=== PATIENT | female | born 1970 | race Caucasian/White ===

== ENCOUNTER → 2018-07-09 | Outpatient (CLI) | payer OTHER ==
[~2018-07-09] MED LIST: IOPAMIDOL (ISOVUE-300) 100 ML BTL ONE
== END ==
LOC: FIMAGING 14:48
PROVIDERS: ATTEND Family Medicine
DX: K38.8 Other specified diseases of appendix (principal); N83.291 Other ovarian cyst, right side; K59.00 Constipation, unspecified; Z97.5 Presence of (intrauterine) contraceptive device
CPT/HCPCS: Q9967

== ENCOUNTER → 2018-07-23 | Outpatient (CLI) | payer OTHER | LOC: FIMAGING 10:38 | PROVIDERS: ATTEND Surgery | DX: K82.8 Other specified diseases of gallbladder (principal); R10.9 Unspecified abdominal pain | CPT/HCPCS: 78227; A9537 ==

== ENCOUNTER 2018-07-25 06:26 | Day surgery (SDC) | payer OTHER ==
[2018-07-25] MEDS ORDERED: LR 1,000 ML IV ONE (06:37)
[2018-07-25 07:07] LABS: PLATELET COUNT 241 10^3/uL (150-400)
--- NOTE | 2018-07-25 07:32 | PDHPUP ---
History & Physical Update H&P update statement: This history and physical update is based on an assessment of the patient which was completed after admission or registration (within 24 hours), but prior to the surgery/procedure. H&P update: H&P reviewed & patient examined, no change in patient's condition since H&P completed
[2018-07-25] MEDS ORDERED: MIDAZOLAM 2 MG/2 ML VIAL IVP ONE (08:14)
--- NOTE | 2018-07-25 08:14 | PDANEPAE ---
ANE History of Present Illness Tumor resection tomorrow, cscope today as prep ANE Past Medical History - Cardiovascular History Hx Hypertension: No Hx Arrhythmias: No Hx Chest Pain: No Hx Coronary Artery / Peripheral Vascular Disease: No Hx CHF / Valvular Disease: No Hx Palpitations: No - Pulmonary History Hx COPD: No Hx Asthma/Reactive Airway Disease: Yes Hx Recent Upper Respiratory Infection: No Hx Oxygen in Use at Home: No Hx Sleep Apnea: No Sleep Apnea Screening Result - Last Documented: Negative Pulmonary History Comment: uses breo- instructed pt to bring to hospital - Neurologic History Hx Cerebrovascular Accident: Yes Hx Seizures: No Hx Dementia: No Neurologic History Comment: mild stroke 2009- no residual effects - Endocrine History Hx Diabetes: No - Renal History Hx Renal Disorders: No - Liver History Hx Hepatic Disorders: No - Neurological & Psychiatric Hx Hx Neurological and Psychiatric Disorders: Yes Neurological / Psychiatric History Comment: depression - Cancer History Hx Cancer: Yes Cancer History Comment: cervical ca x2, last time was 2002 rafael - Congenital Disorder History Hx Congenital Disorders: No - GI History Hx Gastrointestinal Disorders: Yes Gastrointestinal History Comment: 07/25/18 colonoscopy with Mcclure. abd mass currently. constipation. bloating - Other Health History Other Health History: eczema - Chronic Pain History Chronic Pain: No - Surgical History Prior Surgeries: 07/25/18 colonoscopy with Mc[facility]. hand surgeries- bilaterally. LEEP procedure. cervical surgery ANE Review of Systems Review of Systems: - Exercise capacity METS (RN): 3 METS ANE Patient History - Allergies Allergies/Adverse Reactions: codeine Allergy (Verified 07/24/18 11:47) very young and they almost had to pump her stomach - Home Medications Home Medications: Breo Ellipta 100-25 Mcg INH 07/24/18 [Last Taken 07/25/18 05:30] buPROPion 07/24/18 [Last Taken 07/24/18] - NPO status NPO Since - Liquids (Date): 07/25/18 NPO Since - Liquids (Time): 05:00 NPO Since - Solids (Date): 07/24/18 NPO Since - Solids (Time): 15:00 - Smoking Hx Smoking Status: Former smoker - Family Anes Hx Family Hx Anesthesia Complications: none ANE Labs/Vital Signs - Labs Result Diagrams: 07/25/18 06:55 - Vital Signs Blood Pressure: 112/85 Heart Rate: 82 Respiratory Rate: 18 O2 Sat (%): 95 Height: 157.48 cm Weight: 74.843 kg ANE Physical Exam - Airway Neck exam: FROM Mallampati Score: Class 2 Mouth exam: normal dental/mouth exam - Pulmonary Pulmonary: no respiratory distress - Cardiovascular Cardiovascular: regular rate and rhythym - ASA Status ASA Status: III ANE Anesthesia Plan Anesthesia Plan: GA with mask Total IV Anesthesia: Yes
[2018-07-25] MEDS ORDERED: fentaNYL 100 MCG/2 ML INJ ONE (08:15)
[2018-07-25] MEDS ORDERED: LIDOCAINE 2% 5 ML SDV ONE (08:15)
[2018-07-25] MEDS ORDERED: PROPOFOL/EMULSION 500 MG/50 ML BOTTLE IV ONE (08:16)
[2018-07-25] MEDS ORDERED: MIDAZOLAM 2 MG/2 ML VIAL ONE (08:16)
[2018-07-25] MEDS ORDERED: LR 500 ML IV PRN (08:44)
[2018-07-25] MEDS ORDERED: ONDANSETRON 4 MG/2 ML VIAL IVP PRN (08:44)
[2018-07-25] MEDS ORDERED: MEPERIDINE 25 MG/0.5 ML AMP IVP PRN (08:44)
[2018-07-25] MEDS ORDERED: fentaNYL 100 MCG/2 ML INJ IVP PRN (08:44)
[2018-07-25] MEDS ORDERED: HYDROCODONE/APAP 5/325 TAB PO PRN (08:44)
[2018-07-25] MEDS ORDERED: NALOXONE HCL 0.4 MG/ML INJ IVP PRN (08:44)
--- NOTE | 2018-07-25 09:07 | POSTANESTH ---
Post Anesthetic Evaluation Cardiovascular Status: Normal, Stable Respiratory Status: Normal, Stable Level of Consciousness/Mental Status: Can Participate in Eval Pain Control: Adequate, Prn Tx Ordered Nausea/Vomiting Control: Adequate, Prn Tx Ordered Complications Possibly Related to Anesthesia: None Noted
[2018-07-25 10:28] VITALS: BP 120/82
--- NOTE | 2018-08-01 09:26 | CPEKG ---
Test Reason : rafat-op Blood Pressure : / mmHG Vent. Rate : 070 BPM Atrial Rate : 070 BPM P-R Int : 159 ms QRS Dur : 080 ms QT Int : 382 ms P-R-T Axes : 016 005 -16 degrees QTc Int : 413 ms Sinus rhythm Low voltage, precordial leads Probable anteroseptal infarct, old Confirmed by Demetris Hidalgo ([id number]) on 08/01/2018 9:25:46 AM Referred By: Confirmed By:Demetris Hidalgo
== END 2018-07-25 10:25 | disposition home or self-care (01) ==
LOC: FSGY 06:26
PROVIDERS: ATTEND Surgery
PROC: 0DBJ8ZX Excision of Appendix, Via Natural or Artificial Opening Endoscopic, Diagnostic (ICD-10-PCS; principal; 2018-07-25 08:15)
PROC: 0DBM8ZX Excision of Descending Colon, Via Natural or Artificial Opening Endoscopic, Diagnostic (ICD-10-PCS; principal; 2018-07-25 08:15)
DX: D12.4 Benign neoplasm of descending colon (principal); D12.5 Benign neoplasm of sigmoid colon; R19.09 Other intra-abdominal and pelvic swelling, mass and lump
CPT/HCPCS: J2250; J2704; J3010

== ENCOUNTER 2018-07-26 10:04 | Observation (INO) | payer OTHER ==
[2018-07-26] MEDS ORDERED: cefOXitin SODIUM 2 GM in NS 100 ML IV ONE (11:59)
[2018-07-26] MEDS ORDERED: LIDOCAINE 1% 2 ML INJ ID PRN (13:02)
[2018-07-26] MEDS ORDERED: LR 1,000 ML IV ONE (13:02)
[2018-07-26] MEDS ORDERED: ONDANSETRON 4 MG/2 ML VIAL ONE (13:18)
[2018-07-26] MEDS ORDERED: ONDANSETRON 4 MG/2 ML VIAL IVP ONE (13:32)
[2018-07-26] MEDS ORDERED: MIDAZOLAM 2 MG/2 ML VIAL IVP ONE (13:32)
--- NOTE | 2018-07-26 13:32 | PDANEPAE ---
ANE Past Medical History - Cardiovascular History Hx Hypertension: No Hx Arrhythmias: No Hx Chest Pain: No Hx Coronary Artery / Peripheral Vascular Disease: No Hx CHF / Valvular Disease: No Hx Palpitations: No - Pulmonary History Hx COPD: No Hx Asthma/Reactive Airway Disease: Yes Hx Recent Upper Respiratory Infection: No Hx Oxygen in Use at Home: No Hx Sleep Apnea: No Sleep Apnea Screening Result - Last Documented: Negative Pulmonary History Comment: uses breo- instructed pt to bring to hospital - Neurologic History Hx Cerebrovascular Accident: Yes Hx Seizures: No Hx Dementia: No Neurologic History Comment: mild stroke 2009- no residual effects - Endocrine History Hx Diabetes: No - Renal History Hx Renal Disorders: No - Liver History Hx Hepatic Disorders: No - Neurological & Psychiatric Hx Hx Neurological and Psychiatric Disorders: Yes Neurological / Psychiatric History Comment: depression - Cancer History Hx Cancer: Yes Cancer History Comment: cervical ca x2, last time was 2002 rafael - Congenital Disorder History Hx Congenital Disorders: No - GI History Hx Gastrointestinal Disorders: Yes Gastrointestinal History Comment: 07/25/18 colonoscopy with Mc[facility]ure. abd mass currently. constipation. bloating - Other Health History Other Health History: eczema - Chronic Pain History Chronic Pain: No - Surgical History Prior Surgeries: 07/25/18 colonoscopy with Mc[facility]. hand surgeries- bilaterally. LEEP procedure. cervical surgery ANE Review of Systems Review of Systems: - Exercise capacity METS (RN): 3 METS ANE Patient History - Allergies Allergies/Adverse Reactions: codeine Allergy (Verified 07/24/18 11:47) very young and they almost had to pump her stomach - Home Medications Home Medications: Breo Ellipta 100-25 Mcg INH 07/24/18 [Last Taken 07/25/18 05:30] buPROPion 07/24/18 [Last Taken 07/25/18] Ondansetron Odt 07/26/18 [Last Taken 07/26/18 12:50] - NPO status NPO Since - Liquids (Date): 07/26/18 NPO Since - Liquids (Time): 10:00 NPO Since - Solids (Date): 07/25/18 NPO Since - Solids (Time): 20:00 - Smoking Hx Smoking Status: Former smoker - Family Anes Hx Family Hx Anesthesia Complications: none ANE Labs/Vital Signs - Vital Signs Blood Pressure: 127/91 Heart Rate: 76 Respiratory Rate: 12 O2 Sat (%): 97 Height: 157.48 cm Weight: 74.843 kg ANE Physical Exam - Airway Neck exam: FROM Mallampati Score: Class 2 Mouth exam: normal dental/mouth exam - Pulmonary Pulmonary: no respiratory distress - Cardiovascular Cardiovascular: regular rate and rhythym - ASA Status ASA Status: II ANE Anesthesia Plan Anesthesia Plan: general endotracheal anesthesia
[2018-07-26] MEDS ORDERED: fentaNYL 100 MCG/2 ML INJ ONE (13:51)
[2018-07-26] MEDS ORDERED: fentaNYL 100 MCG/2 ML INJ IVP ONE ×2 (14:00)
[2018-07-26] MEDS ORDERED: PROPOFOL/EMULSION 500 MG/50 ML BOTTLE IV ONE ×2 (14:08→15:04)
[2018-07-26] MEDS ORDERED: RANITIDINE 50 MG/2 ML VIAL ONE (14:09)
[2018-07-26] MEDS ORDERED: DEXAMETHASONE 4 MG/ML VIAL ONE ×2 (14:09)
[2018-07-26] MEDS ORDERED: KETOROLAC 30 MG/1 ML SDV ONE (14:09)
[2018-07-26] MEDS ORDERED: ROCURONIUM 100 MG/10 ML VIAL ONE (14:09)
[2018-07-26] MEDS ORDERED: METOCLOPRAMIDE 10 MG/2 ML VIAL ONE (14:09)
[2018-07-26] MEDS ORDERED: LIDOCAINE 2% 100 MG/5 ML SYR ONE (14:09)
[2018-07-26] MEDS ORDERED: BUPIVACAINE/EPI 0.5% 30 ML SDV ONE (14:20)
[2018-07-26] MEDS ORDERED: GLYCOPYRROLATE 0.2 MG/1 ML VIAL ONE ×2 (15:16)
[2018-07-26] MEDS ORDERED: fentaNYL 100 MCG/2 ML INJ IVP PRN (15:17)
[2018-07-26] MEDS ORDERED: ALBUTEROL 3 ML DEYVIAL IH PRN (15:17)
[2018-07-26] MEDS ORDERED: NALOXONE HCL 0.4 MG/ML INJ IVP PRN (15:17)
[2018-07-26] MEDS ORDERED: PROMETHAZINE HCL 25 MG/ML INJ IVP PRN (15:17)
[2018-07-26] MEDS ORDERED: NEOSTIGMINE METHYLSULFATE 5 MG/5 ML SYR ONE (15:17)
[2018-07-26] MEDS ORDERED: ONDANSETRON 4 MG/2 ML VIAL IVP PRN (15:17)
--- NOTE | 2018-07-26 15:42 | POSTANESTH ---
Post Anesthetic Evaluation Cardiovascular Status: Similar to Pre-Op Cond Respiratory Status: Similar to Pre-op Cond. Level of Consciousness/Mental Status: Mildly Sleepy, Arousable Pain Control: Adequate, Prn Tx Ordered Nausea/Vomiting Control: Adequate, Prn Tx Ordered Complications Possibly Related to Anesthesia: None Noted
[2018-07-26] MEDS ORDERED: HYDROmorphONE/DILAUDID 1 MG/ML INJ IVP PRN (16:19)
[2018-07-26] MEDS ORDERED: ACETAMINOPHEN 325 MG TAB PO PRN (16:19)
[2018-07-26] MEDS ORDERED: HYDROCODONE/APAP 5/325 TAB PO PRN (16:19)
--- NOTE | 2018-07-26 16:22 | POSTOPPROG ---
Post Op Note Date of Operation: 07/26/18 Surgeon: Adonay Mcclure Anesthesiologist: Alfonzo Mccullough Anesthesia: GET(General Endotracheal) Pre-op Diagnosis: Appendiceal neoplasm Post-op Diagnosis: Same Procedure: Lap Appy with partial cecectomy Inf/Abcess present in the surg proc area at time of surgery?: No EBL: Minimal Complications: no immediate Specimen(s): appendix
[2018-07-26] MEDS ORDERED: LR 1,000 ML IV SCH (16:30)
[2018-07-26] MEDS: ONDANSETRON 4 MG/2 ML VIAL IVP PRN ×2 (17:21→22:37)
[2018-07-26] MEDS: KETOROLAC 15 MG/1 ML SDV IVP SCH ×2 (17:21→23:22)
[2018-07-27] MEDS: OXYCODONE/APAP 5/325 TAB PO PRN ×2 (04:53→09:01)
[2018-07-27] MEDS: KETOROLAC 15 MG/1 ML SDV IVP SCH (05:32)
--- NOTE | 2018-07-27 05:54 | GOP ---
DATE OF OPERATION: 07/26/2018 SURGEON: Adonay Mcclure MD ONLINE CONTENT EDITOR: Lebron Motley. ANESTHESIA: General. ANESTHESIOLOGIST: Dr. Mccullough. PREOPERATIVE DIAGNOSIS: Appendiceal neoplasm. POSTOPERATIVE DIAGNOSIS: Appendiceal neoplasm. PROCEDURE PERFORMED: Laparoscopic appendectomy with partial cecectomy. FINDINGS: See below. INDICATION FOR SURGERY: 47-year-old female with a history of progressive abdominal pain. 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 She is noted to have cystic ovaries, which have been assessed by gynecological service and felt to be simple in nature. No evidence of obvious peritoneal carcinomatosis was present upon imaging. She is undergoing a diagnostic laparoscopy with resection as indicated. Risks and benefits were explained to the patient including, but not limited to bleeding, infection, open conversion, appendiceal rupture, differential diagnoses, and various modes for resection pending operative findings. All questions were entertained. She desires to proceed. DESCRIPTION OF PROCEDURE: General anesthesia was induced. The abdomen was pre injected with 0.5% Marcaine with epinephrine. A vertical infraumbilical cutdown was created. A 10 mm trocar was placed under direct visualization. The 5 mm hypogastric and 5 mm left lower quadrant ports were inserted. Abdominal exploration revealed a simple appearing left ovarian cyst. The uterus appeared normal. The right ovary appeared normal without cystic abnormalities. No pelvic ascites or nodularity was present. The visualized portions of the abdominal visceral surfaces all appeared normal. The liver and gallbladder appeared normal with omental adhesions present only. The appendix was easily identified sitting within the right pericolic gutter. It was dilated as suspected upon CT imaging. No extramural mucin or implants were present. The visualized portions of the small and large intestine all appeared normal as were visualized portions of the omentum. The appendix was elevated out of the retroperitoneum. The peritoneum was kept intact overlying the appendix, as was the entire mesoappendiceal fat. This was dissected toward the base of the cecum. The cecum was taken partially off the white line of Toldt, allowing for the cecum and appendix to be elevated up the operative field. Preoperative colonoscopy was performed yesterday showing protrusion of the mass at the base, but no other cecal abnormalities. A partial cecectomy was able to be safely performed, allowing for multiple centimeters of normal cecum beyond the base of the appendix. This was done at the base of the ileocecal valve with multiple firings of the NIGEL 60 stapler. The specimen was placed into a large EndoCatch pouch. The umbilical incision was extended and the specimen brought intact ex vivo. No tumor rupture or inadvertent visceral spreading had taken place. Abdominal exploration revealed a hemostatic staple line with pink viable cecum. The trocars were removed under direct visualization. The infraumbilical midline fascia was closed with a running Vicryl suture. The wounds were closed with Monocryl suture followed by Dermabond. The patient was taken to the recovery room, extubated uneventfully. /[id number]/MODL MTDD
[2018-07-27 08:37] VITALS: BP 110/71
--- NOTE | 2018-07-27 09:54 | SOAPPROG ---
SOAP Progress Note Assessment/Plan: Assessment:no overnight events. pain controlled. c/o SKINNER mostly. avss. comfortable. abd soft. incis clean. RUQ tenderness markedly improved. s/p lap appy/cecectomy. doing well. home today. Plan: 07/27/18 09:53 Objective: Vital Signs Temp Pulse Resp BP Pulse Ox 36.7 C 83 16 110/71 97 07/27/18 08:35 07/27/18 08:35 07/27/18 08:35 07/27/18 08:35 07/27/18 08:35 07/26/18 07/27/18 07/28/18 05:59 05:59 05:59 Intake Total 1515 Output Total 760 Balance 755 ICD10 Worksheet Patient Problems: Problems Problem Status Onset Appendiceal tumor Acute
--- NOTE | 2018-07-27 12:34 | ASDISCHSUM ---
Discharge Information Plan Status:Home with No Needs Medically Cleared to Leave:07/26/2018 Discharge Date:07/26/2018 CM D/C Disposition:Home, Routine, Self-Care ADT D/C Disposition:Home, Routine, Self-Care Projected Discharge Date:07/26/2018 Transportation at D/C:Family Discharge Delay Reason: Follow-Up Date:07/26/2018 Discharge Slot: Final Diagnosis:constipation, appendiceal mass Placement Information Patient Contact Information Contact Name:ANTONIETTA Relationship: Address:[address] [facility] Work Phone: City:[place] Alternate Phone: [facility]/Zip Code:[place] [address] Email: Financial Information Financial Class:HMO and PPO Plans Primary Plan Desc:Presentigo DYLAN Primary Plan Number:[id number] Secondary Plan Desc:ANTON Secondary Plan Number:[id number] Assessment Information LACE LACE Length of stay for Answers: Less than 1 day current admission Acuity / Level of Answers: No Care: Did the patient have an inpatient admission? Comorbidities - select Answers: Any tumor (including all that apply lymphoma or leukemia) Cerebrovascular disease (CVA, TIA, aneurysms, vasc ular dementia) Other Notes: Asthma # of Emergency department Answers: 0 visits in the last 6 months Score: 4 Date Signed: 07/27/2018 10:17 AM Electronically Signed By:Sophie Dos Santos Case Management Discharge Plan Note Case Management Discharge Discharge Order Complete? Answers: Yes Patient to Obtain Answers: via Family Medications Transportation Arranged Answers: Family/Friends Transport will Pick (Date 07/27/2018 12:00 AM & Time) Family Notified Answers: Yes Notes: in the room Discharge Comments Notes: Spoke with pt in the room. Family also present and able to help care for pt upon discharge. Pt independent with ADLs. No CM need noted at this time. Intervention Information
== END 2018-07-27 11:12 | disposition home or self-care (01) ==
LOC: INTOOBSV 11:56 → F3E 11:56
PROVIDERS: ADMIT Surgery; ATTEND Surgery
PROC: 0DBH4ZZ Excision of Cecum, Percutaneous Endoscopic Approach (ICD-10-PCS; principal; 2018-07-26 13:30)
PROC: 0DTJ4ZZ Resection of Appendix, Percutaneous Endoscopic Approach (ICD-10-PCS; principal; 2018-07-26 13:30)
DX: D37.3 Neoplasm of uncertain behavior of appendix (principal)
CPT/HCPCS: 44970; G0378; J0694; J1100; J1170; J1885; J2001; J2250; J2405; J2704; J2710; J2765; J2780; J3010

== ENCOUNTER 2018-10-22 05:57 | Observation (INO) | payer OTHER ==
--- NOTE | 2018-10-21 16:14 | PDGENHP ---
History and Physical - Chief Complaint Stress Urinary Incontinence - History of Present Illness Aicha is a 48 yo pre-menopausal female who I have been working with on mixed urinary incontinence, with a strong predominance for stress incontinence. She does not have significant pelvic organ prolapse. She has tried and failed pelvic PT and also tried and failed anticholinergics with oxybutynin ER patch. Her urgency has improved with lifestyle modifications and avoidance of bladder irritants, but her stress leaking remains a major issue. She is interested in surgical intervention with incontinence sling. 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 Path showed low grade mucinous neoplasm. 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 Her children do not know about her meth use and she'd like it to stay that way. Portion of cecum and vermiform appendix: -- Low grade appendiceal mucinous neoplasm -- Maximal tumor dimension about 4 cm. -- Confined to appendix -- Margins clear -- Acute inflammation, mild History Information - Allergies/Home Medication List Allergies/Adverse Reactions: codeine Allergy (Verified 10/10/18 12:54) very young and they almost had to pump her stomach Home Medications: Breo Ellipta 100-25 Mcg INH DAILY 07/24/18 [Last Taken 07/25/18 08:00] Bupropion HCl [Wellbutrin Xl] #0 07/24/18 [Last Taken 07/25/18 08:00] Albuterol [Proventil Inhaler HFA (*)] Q4 PRN 07/26/18 [Last Taken Unknown] Herbals/Supplements -Info Only 07/26/18 [Last Taken Unknown] I have personally reviewed and updated: family history, medical history, social history, surgical history Past Medical History: Asthma, Cervical dysplasia, Mucinous neoplasm of the cervix, methamphetamine abuse - Surgical History Additional surgical history: LEEP 2007, R cheek cyst 2017, Cryo cervical 1980s, LS appendectomy and partial cecectomy 2017 - Family History Positive for: vascular disease, CAD, hypertension - Social History Smoking Status: Former smoker Drug Use: Other (Methamphetamine for years - quit 2 years ago - Pt DOES NOT want her children to know) Review of Systems Review of Systems: ROS: 10pt was reviewed & negative except for what was stated in HPI & below Physical Exam Physical Exam: Constitutional: no apparent distress, appears nourished, not in pain Eyes: PERRL, anicteric sclera, EOMI Ears, Nose, Mouth, Throat: moist mucous membranes, hearing normal Skin: warm, normal color, no rashes or abrasions Musculoskeletal: full muscle strength Psychiatric: interacting appropriately, not anxious Assessment & Plan Assessment: Preop: TVT mid-urethral incontinence sling, Cystoscopy - Urine Culture on admission prior to antibiotics (clean catch) - Ancef 2g prior to incision. - Pyridium 200mg PO x 1, one hour prior to procedure in PREOP. - Routine preop orders. - Will like transfer to [facility] for observation with plan to dc home same day (afternoon/evening) vs overnight observation. GERALD
[2018-10-22] MEDS ORDERED: ceFAZolin 2 GM/DEXTROSE 100 ML IV ONE (06:15)
[2018-10-22] MEDS ORDERED: PHENAZOPYRIDINE HCL 200 MG TAB PO ONE (06:15)
[2018-10-22] MEDS ORDERED: BUPIVACAINE/EPI 0.5% 30 ML SDV ONE (06:18)
[2018-10-22] MEDS ORDERED: VASOPRESSIN 20 UNIT/ML VIAL ONE (06:19)
[2018-10-22] MEDS ORDERED: LR 1,000 ML IV ONE (06:25)
[2018-10-22] MEDS ORDERED: MIDAZOLAM 2 MG/2 ML VIAL IVP ONE (07:08)
[2018-10-22] MEDS ORDERED: fentaNYL 100 MCG/2 ML INJ ONE (07:09)
[2018-10-22] MEDS ORDERED: PROPOFOL 200 MG/20 ML VIAL ONE (07:12)
[2018-10-22] MEDS ORDERED: KETOROLAC 30 MG/1 ML SDV ONE (07:14)
[2018-10-22] MEDS ORDERED: ONDANSETRON 4 MG/2 ML VIAL ONE (07:14)
[2018-10-22] MEDS ORDERED: DEXAMETHASONE 4 MG/ML VIAL ONE (07:14)
[2018-10-22] MEDS ORDERED: LIDOCAINE 2% 100 MG/5 ML SYR ONE (07:14)
[2018-10-22] MEDS ORDERED: SCOPOLAMINE HYDROBROMIDE 1 MG/3 DAYS PATCH TD SCH (07:15)
[2018-10-22] MEDS ORDERED: PROPOFOL/EMULSION 500 MG/50 ML BOTTLE IV ONE (07:27)
[2018-10-22] MEDS ORDERED: HYDROCODONE/APAP 5/325 TAB PO PRN (07:45)
[2018-10-22] MEDS ORDERED: NALOXONE HCL 0.4 MG/ML INJ IVP PRN (07:45)
[2018-10-22] MEDS ORDERED: METOCLOPRAMIDE 10 MG/2 ML VIAL IVP PRN (07:45)
[2018-10-22] MEDS ORDERED: ONDANSETRON 4 MG/2 ML VIAL IVP PRN ×2 (07:45→09:07)
[2018-10-22] MEDS ORDERED: DIAZEPAM 5 MG/ML 1 ML SYR IVP PRN (07:45)
[2018-10-22] MEDS ORDERED: ALBUTEROL 3 ML DEYVIAL IH PRN (07:45)
[2018-10-22] MEDS ORDERED: ACETAMINOPHEN 500 MG TAB PO PRN (07:45)
[2018-10-22] MEDS ORDERED: PROMETHAZINE HCL 25 MG/ML INJ IVP PRN (07:45)
[2018-10-22] MEDS ORDERED: HYDROmorphONE/DILAUDID 2 MG/ML INJ IVP PRN (07:45)
[2018-10-22] MEDS ORDERED: LR 500 ML IV PRN (07:45)
[2018-10-22] MEDS ORDERED: oxyCODONE IR 5 MG TAB PO PRN ×2 (07:45→09:07)
[2018-10-22] MEDS ORDERED: fentaNYL 100 MCG/2 ML INJ IVP PRN (07:45)
--- NOTE | 2018-10-22 07:47 | PDANEPAE ---
ANE History of Present Illness urinary incontinence for TVT ANE Past Medical History - Cardiovascular History Hx Hypertension: No Hx Arrhythmias: No Hx Chest Pain: No Hx Coronary Artery / Peripheral Vascular Disease: No Hx CHF / Valvular Disease: No Hx Palpitations: No - Pulmonary History Hx COPD: No Hx Asthma/Reactive Airway Disease: Yes Hx Recent Upper Respiratory Infection: No Hx Oxygen in Use at Home: No Hx Sleep Apnea: No Sleep Apnea Screening Result - Last Documented: Negative Pulmonary History Comment: uses breo- instructed pt to bring to hospital - Neurologic History Hx Cerebrovascular Accident: Yes Hx Seizures: No Hx Dementia: No Neurologic History Comment: mild stroke 2009- no residual effects - Endocrine History Hx Diabetes: No - Renal History Hx Renal Disorders: No - Liver History Hx Hepatic Disorders: No - Neurological & Psychiatric Hx Hx Neurological and Psychiatric Disorders: Yes Neurological / Psychiatric History Comment: depression - Cancer History Hx Cancer: Yes Cancer History Comment: cervical ca x2, last time was 2002 rafael - Congenital Disorder History Hx Congenital Disorders: No - GI History Hx Gastrointestinal Disorders: Yes Gastrointestinal History Comment: 07/25/18 colonoscopy with Mc[facility]ure. abd mass currently. constipation. bloating - Other Health History Other Health History: eczema - Chronic Pain History Chronic Pain: No - Surgical History Prior Surgeries: 07/26/18 laprascopy, appy, cecetomy with Mcclure. 07/25/18 colonoscopy with Mcclure. hand surgeries- bilaterally. LEEP procedure. cervical surgery ANE Review of Systems Review of systems is: negative Review of Systems: - Exercise capacity METS (RN): 3 METS ANE Patient History - Allergies Allergies/Adverse Reactions: codeine Allergy (Verified 10/10/18 12:54) very young and they almost had to pump her stomach - Home Medications Home medications: home medication list seen and reviewed Home Medications: Breo Ellipta 100-25 Mcg INH DAILY 07/24/18 [Last Taken 07/25/18 08:00] Bupropion HCl [Wellbutrin Xl] #0 07/24/18 [Last Taken 07/25/18 08:00] Albuterol [Proventil Inhaler HFA (*)] Q4 PRN 07/26/18 [Last Taken Unknown] Herbals/Supplements -Info Only 07/26/18 [Last Taken Unknown] - NPO status NPO Since - Liquids (Date): 10/21/18 NPO Since - Liquids (Time): 22:00 NPO Since - Solids (Date): 10/21/18 NPO Since - Solids (Time): 20:00 - Anes Hx Anes Hx: post operative nausea - Smoking Hx Smoking Status: Former smoker - Family Anes Hx Family Hx Anesthesia Complications: none ANE Labs/Vital Signs - Vital Signs Blood Pressure: 109/81 Heart Rate: 69 Respiratory Rate: 18 O2 Sat (%): 94 Height: 157.48 cm Weight: 70.307 kg ANE Physical Exam - Airway Neck exam: FROM Mallampati Score: Class 2 Mouth exam: normal dental/mouth exam - Pulmonary Pulmonary: no respiratory distress - Cardiovascular Cardiovascular: regular rate and rhythym - ASA Status ASA Status: II ANE Anesthesia Plan Anesthesia Plan: GA w LMA Urgent/Emergent Case: Luisa gibson completed preop but documented later for safe timely pt care
--- NOTE | 2018-10-22 07:47 | POSTANESTH ---
Post Anesthetic Evaluation Cardiovascular Status: Normal, Stable Respiratory Status: Normal, Stable Level of Consciousness/Mental Status: Can Participate in Eval, Alert and Oriented Pain Control: Adequate, Prn Tx Ordered Nausea/Vomiting Control: Adequate, Prn Tx Ordered Complications Possibly Related to Anesthesia: None Noted
--- NOTE | 2018-10-22 08:31 | POSTOPPROG ---
Post Op Note Date of Operation: 10/22/18 Surgeon: Aron Jean-Baptiste Lead Inspector: None Anesthesiologist: Kristian Rankin Anesthesia: GET(General Endotracheal) Pre-op Diagnosis: Stress urinary incontinence Post-op Diagnosis: Same Procedure: TVT mid-urethral incontinence sling Findings: NEFG, nl vaginal anatomy, no cystocele, nl urethra and bladder on cysto Inf/Abcess present in the surg proc area at time of surgery?: No EBL: 10cc Complications: None Bowel Protocol: No Specimen(s): None
--- NOTE | 2018-10-22 08:36 | SUROPNOTE ---
[facility] Operative Report - Surgery Date of Operation: 10/22/18 Surgeon: Aron Jean-Baptiste Turntable Man: None Anesthesiologist: Kristian Rankin Anesthesia: GET(General Endotracheal) Pre-op Diagnosis: 1. Stress urinary incontinence 2. Mixed urinary incontinence Post-op Diagnosis: 1. Same Procedure: 1. TVT mid-urethral incontinence sling 2. Cystoscopy Findings: 1. NEFG, normal vaginal anatomy, minimal cystocele/uterine prolapse. 2. Cystoscopically normal urethra and bladder, no foreign material or other injuries to the bladder following placement of sling. Strong ureteral jet's from bilateral UO's. Inf/Abcess present in the surg proc area at time of surgery?: No EBL: 10cc Complications: None Bowel Protocol: No Specimen(s): None Technique: After informed consent was reviewed with the patient, she was taken to the operating room, where time-out was performed confirming correct patient and planned procedures. Sequential compression devices were applied to the patients lower extremities. General anesthesia was induced without issue. The patient was placed in low lithotomy position with her legs in sheyla stirrups. Care was taken to cushion all potential pressure areas and position the patient an an ergonomically-neutral position. An examination under anesthesia was performed with the findings noted above. She was prepped and draped in the usual sterile fashion. Antibiotics were given prior to skin incision. The bladder was drained with the cystoscope sheath. Puncture sites were marked on the patients abdomen approximately 2cm lateral of the midline bilaterally just cephalad to the symphysis. Tracts were hydrodissected from above using injectable saline and the skin was punctured with a 11 blade scalpel. Following this attention was turned to the vagina where an area approximately 1.5cm proximal to the external urethral meatus was identified on the anterior vaginal wall and infiltrated with local anesthetic with epi and dilute vasopressin. The mucosa was grasped with helene clamps and the skin opened with a scalpel. Mili scissors were used to develop tracts back towards the pubic bone bilaterally. At this point the [employer] [place] Fit TVT sling was prepared the trocars delivered behind the pubic bone up and through our planned skin incisions on both sides without apparent complication. At this point we looked with cystoscopy and confirmed that there were no trocar injuries to the urethra or bladder. I did note that I could see the LEFT arm of the sling that appeared quite close to the lateral bladder wall on that side, but definitely not punctured/injured. I did elect to replace that side and move further lateral. This arm was backed out and replaced with the trocar. Cysto performed again confirmed that arm to not close to bladder wall. We also visualized strong ureteral jets from both UO's assisted with Pyridium-stained orange urine. At this point we tensioned the sling using a pair of King scissors in a completely tension-free fashion and the arms of the sling was trimmed. The vaginal mucosa was closed over the sling using a running suture of 2-0 Vicryl. To conclude we did not pack the vagina and I replaced her de leon catheter. Abdominal stab incisions closed with Dermabond. Sponge, lap, needle, and instrument counts were announced as correct x 2. The patient tolerated the procedure well. She was extubated and transported to the PACU in stable condition. I was scrubbed and present for the entire procedure.
[2018-10-22] MEDS ORDERED: ONDANSETRON DISINTEGRATING 4 MG TAB PO PRN (09:07)
[2018-10-22] MEDS ORDERED: ALBUTEROL 60 PUFFS/8 GM MDI IH PRN (09:15)
[2018-10-22] MEDS ORDERED: ACETAMINOPHEN 500 MG TAB PO SCH (10:07)
[2018-10-22] MEDS ORDERED: KETOROLAC 30 MG/1 ML SDV IVP ONE (15:02)
[2018-10-22 19:13] VITALS: BP 110/75
[2018-10-23] MEDS ORDERED: PATCH REMOVAL 1 EA PATCH TD ONE (07:08)
[2018-10-23] MEDS ORDERED: IBUPROFEN 600 MG TAB PO SCH (09:13)
== END 2018-10-22 18:15 | disposition home or self-care (01) ==
LOC: FSGY 05:57 → F3E 09:07 → FOB 10:43
PROVIDERS: ADMIT Obstetrics & Gynecology; ATTEND Obstetrics & Gynecology
PROC: 0TJ98ZZ Inspection of Ureter, Via Natural or Artificial Opening Endoscopic (ICD-10-PCS; principal; 2018-10-22 07:15)
PROC: 0TUC0JZ Supplement Bladder Neck with Synthetic Substitute, Open Approach (ICD-10-PCS; principal; 2018-10-22 07:15)
DX: N39.46 Mixed incontinence (principal); F15.21 Other stimulant dependence, in remission; Z90.49 Acquired absence of other specified parts of digestive tract; D37.3 Neoplasm of uncertain behavior of appendix
CPT/HCPCS: 57288; G0378; C1771; J0690; J1100; J1885; J2001; J2405; J2704; J3010